=== PATIENT | male | born 1980 | race Caucasian/White ===

== ENCOUNTER 2021-04-18 08:45 | Outpatient (RCR) | payer BC | END 2021-04-20 | disposition still patient (30) | LOC: MKS.ESL.PT | DX: M25.512 Pain in left shoulder (principal) | CPT/HCPCS: G0283-GP ==

== ENCOUNTER 2021-06-22 08:15 | Outpatient (RCR) | payer BC | END 2021-06-22 09:09 | disposition home or self-care (01) | LOC: MKS.ESL.PT 08:15 | DX: M25.512 Pain in left shoulder (principal); M54.9 Dorsalgia, unspecified ==

== ENCOUNTER 2022-05-11 07:00 | Outpatient (RCR) | payer BC | END 2022-05-15 | disposition home or self-care (01) | LOC: PT.GENESIS | DX: M25.561 Pain in right knee (principal) ==